=== PATIENT | female | born 1995 | race Caucasian/White ===

== ENCOUNTER 2021-10-05 19:25 | Emergency (ER) | payer OTHER ==
[~2021-10-05] VITALS: Ht 175.3 cm; Wt 108.9 kg
[2021-10-05] MEDS ORDERED: APAP W/CODEINE1 TA2 PO (20:28)
[2021-10-05] MEDS ORDERED: FLEXERIL PO (20:28)
[2021-10-05] MEDS ORDERED: TORADOL 10 MG T10 MG PO (20:28)
[2021-10-05] MEDS ORDERED: PROZAC40 MG PO (20:31)
[2021-10-05] MEDS ORDERED: ADDERALL XR 1515 MG PO (20:32)
[2021-10-05 20:50] VITALS: BP 128/78
--- NOTE | 2021-10-06 07:20 | EKG ---
[address] [address] [place] [address] ELECTROCARDIOGRAM REPORT Name: AUBRIE WEBB Room #: DEP YINKA Hansen#: [id number] Admission: 10/05/21 Attend Phys: Discharge: 10/05/21 Date of : [birth year] Report #: [id number] [facility] ED Test Date: 2021-10-05 Test Time: 19:33:47 Pat Name: AUBRIE WEBB Department: Room: Gender: F Joint Setter: OXANA : 1995 Requested By: Gurpreet Toth Order Number: [id number] MD: Yohan Choudhury Measurements Intervals [place] Rate: 92 P: 48 UT: 152 QRS: 83 QRSD: 89 T: 36 QT: 340 QTc: 421 Interpretive Statements Sinus rhythm Probable left atrial enlargement Baseline wander in lead(s) I,III,aVL No previous ECG available for comparison Electronically Signed On 10-06-2021 7:20:35 [employer] by Yohan Choudhury [email or web address] <ELECTRONICALLY SIGNED> By: Yohan Choudhury MD, [facility] 10/06/21 0720 32 32 Yohan Choudhury MD, FACC /EPI
== END 2021-10-05 20:50 | disposition home or self-care (01) ==
LOC: ER 19:25
DX: R07.89 Other chest pain (principal); F32.9 Major depressive disorder, single episode, unspecified; Z79.899 Other long term (current) drug therapy